=== PATIENT | female | born 1980 | race Caucasian/White ===

== ENCOUNTER 2016-09-20 17:57 | Emergency (ER) | payer BC ==
[~2016-09-20] VITALS: Ht 170.2 cm; Wt 104.0 kg
[2016-09-20 18:42] VITALS: BP 119/78
[2016-09-20] MEDS ORDERED: SUMATRIPTAN SUCCINATE 6MG/0.5ML VIAL SUBCUT ONE (19:30)
[2016-09-20] MEDS ORDERED: PROCHLORPERAZINE MALEATE 10MG TABLET PO ONE (19:30)
[2016-09-20 19:53] LABS: BASOPHILS % 0.4 % (0.0-2.0); EOSINOPHILS % 0.3 % (0.0-5.0); HEMATOCRIT. 36.6 % (36.0-48.0); HEMOGLOBIN. 12.5 g/dL (12.0-16.0); LYMPHOCYTES % 13.9 % (20.0-50.0); MEAN CORPUSCULAR HEMOGLOBIN 30.3 pg (28.0-32.0); MEAN CORPUSCULAR HGB CONC 34.2 g/dL (31.0-37.0); MEAN CORPUSCULAR VOLUME 88.4 fL (81.0-99.0); MEAN PLATELET VOLUME 8.2 fl (7.4-10.4); MONOCYTES % 6.2 % (2.0-8.0); NEUTROPHILS % 79.2 % (40.0-76.0); PLATELET 327 x1000/uL (130-400); RED BLOOD CELL COUNT 4.14 mill/uL (4.2-5.4); RED CELL DISTRIBUTION WIDTH 12.9 % (11.6-14.6); WHITE BLOOD COUNT 10.6 x1000/uL (4.5-11.0)
[2016-09-20 19:55] LABS: CHLORIDE 106 mEq/L (98-107); INDEX HEMOLYSI 1 (1-3); INDEX ICTERIC 1 (1-4); INDEX LIPEMIC 1 (1-3)
[2016-09-20 20:01] LABS: ANION GAP 12; CALCIUM 8.3 mg/dL (8.5-10.1); CARBON DIOXIDE 26 mEq/L (21-32); UREA NITROGEN BLOOD 7 mg/dL (7-21)
[2016-09-20 20:02] LABS: HCG SCREEN NEGATIVE; eGFR > 60 mL/min (>60)
== END 2016-09-21 02:00 | disposition home or self-care (01) ==
LOC: ER 09-21 01:11
DX: G43.909 Migraine, unspecified, not intractable, without status migrainosus (principal); Z90.49 Acquired absence of other specified parts of digestive tract; Z98.890 Other specified postprocedural states
CPT/HCPCS: 36415; 80048; 81025; 82962; 84703; 85025; 96372; 99284; J3030; Q0164

== ENCOUNTER 2017-06-23 13:19 | Emergency (ER) | payer BC | END 2017-06-23 14:23 | disposition left against medical advice (07) | LOC: ER 13:34 | DX: Z53.21 Procedure and treatment not carried out due to patient leaving prior to being seen by health care provider (principal) ==